=== PATIENT | female | born 2000 | race Caucasian/White ===

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

== ENCOUNTER 2022-06-11 01:12 | Emergency (ER) | payer MEDICAID, OTHER ==
[~2022-06-11] VITALS: Ht 167.6 cm; Wt 97.8 kg
[~2022-06-11 01:12] MED LIST changes: -DEXM5TAB2; +[UNRECOGNIZED DRUG - CODE]
[2022-06-11 04:23] VITALS: BP 127/75
[2022-06-11] MEDS ORDERED: IBUP800T26 PO (05:48)
[2022-06-11] MEDS ORDERED: BACDST PO (05:48)
== END 2022-06-11 05:55 | disposition home or self-care (01) ==
LOC: ER 01:12
DX: L02.411 Cutaneous abscess of right axilla (principal); L02.421 Furuncle of right axilla
CPT/HCPCS: 10060

== ENCOUNTER 2023-07-12 14:23 | Emergency (ER) | payer OTHER ==
[~2023-07-12] VITALS: Ht 167.6 cm; Wt 114.0 kg
[2023-07-12 14:23] VITALS: BP 130/75; PULSE 94; RESP 20; O2SAT 95
[~2023-07-12 14:23] MED LIST changes: +BACDST PO; +IBUP-1455 PO; +TRAZ-227; -TRAZ50TA2
[2023-07-12 15:28] LABS: Basophils # (auto) 0 10 ^3/uL (0-0.2); Basophils % (auto) 0.3 % (0.0-2.0); Eosinophils # (auto) 0 10 ^3/uL (0-0.8); Hematocrit 39.8 % (36.0-46.0); Hemoglobin 13.3 g/dL (12.2-16.2); Lymphocytes # (auto) 2.3 10 ^3/uL (0.4-5.4); Lymphocytes % (auto) 22.9 % (10.0-50.0); Mean Corpuscular Hemoglobin 29.1 pg (28.0-32.0); Mean Corpuscular Hgb Conc. 33.5 g/dL (32.0-36.0); Mean Corpuscular Volume 86.8 fL (80.0-100.0); Monocytes # (auto) 0.7 10 ^3/uL (0-1.3); Neutrophils # (auto) 6.9 10 ^3/uL (1.6-8.6); Neutrophils % (auto) 69.8 % (37.0-80.0); Nucleated Red Blood Cells % 0.1 %; Red Blood Cells 4.59 10^6/uL (4.0-5.20); Red Cell Distribution Width 14.2 % (11.8-14.3); White Blood Cell 9.9 10^3/uL (4.4-10.8)
[2023-07-12 15:52] LABS: Alanine Aminotransferase 23 U/L (7-40); Albumin 4.7 g/dL (3.2-4.8); Alkaline Phosphatase 113 U/L (46-116); Anion Gap 6 (5-15); Aspartate Aminotransferase 22 U/L (13-40); Carbon Dioxide 24 mmol/L (20-30); Chloride 108 mmol/L (98-107); Glucose 89 mg/dL (74-106); Potassium 4.1 mmol/L (3.5-5.1); Sodium 138 mmol/L (136-145)
[2023-07-12 15:53] LABS: Bilirubin, Total 0.8 mg/dL (0.2-1.0); Total Protein 7.3 g/dL (5.7-8.2)
[2023-07-12 15:54] LABS: BUN/Creatinine Ratio 7.8 (10.0-20.0); Blood Urea Nitrogen < 5 mg/dL (9-23)
[2023-07-12] MEDS ORDERED: HYDR25SU21 PR (16:54)
== END 2023-07-12 20:05 | disposition home or self-care (01) ==
LOC: ER 14:23
DX: K64.4 Residual hemorrhoidal skin tags (principal)
CPT/HCPCS: 36415; 80053; 85025